=== PATIENT | male | born 1975 | race Caucasian/White ===

== ENCOUNTER → 2021-11-26 | Outpatient (CLI) | payer MEDICARE, MEDICAID ==
[~2021-11-26] MED LIST: ASPI81TA26 PO; CETI10CH PO; FARX1TAB3 PO; METF-877 PO; PANT40TA29 PO; RAMI1CAP26 PO; SERT25TA21 PO; SIMV10TA21 PO; TRUL10IN SC
== END ==
LOC: EDBD → M LABSMTC 09:38
PROVIDERS: ATTEND Anesthesiology
DX: Z11.52 Encounter for screening for COVID-19 (principal); Z20.822 Contact with and (suspected) exposure to COVID-19